=== PATIENT | female | born 1955 | race Caucasian/White ===

== ENCOUNTER 2018-03-21 08:21 | Day surgery (SDC) | payer OTHER, MEDICARE ==
[~2018-03-21 08:21] MED LIST: CEFAZOLIN 2 GM/50 ML (PMX) 50 ML IVPB; SOD CHLORIDE 0.9% 1,000 ML IV
[2018-03-21] MEDS ORDERED: DEXAMETHASONE 4 MG/ML 1 ML INJ (10:56)
[2018-03-21] MEDS ORDERED: MIDAZOLAM 1 MG/ML 2 ML INJ (10:56)
[2018-03-21] MEDS ORDERED: FENTAnyl 50 MCG/ML VIAL (10:56)
[2018-03-21] MEDS ORDERED: LIDOCAINE 2% (SDV) 5 ML INJ ×2 (10:57→11:47)
[2018-03-21] MEDS ORDERED: PROPOFOL 20 ML ×2 (10:57→11:47)
[2018-03-21] MEDS ORDERED: ISOSULFAN BLUE 1% 5 ML INJ SC (11:05)
[2018-03-21] MEDS ORDERED: MEPERIDINE 25 MG INJ IV (11:30)
[2018-03-21] MEDS ORDERED: PROCHLORPERAZINE 10 MG INJ IV (11:30)
[2018-03-21] MEDS ORDERED: HYDROmorphONE 1 MG/5 ML IV SYRINGE IV (11:30)
[2018-03-21] MEDS ORDERED: FENTAnyl 50 MCG/ML VIAL IV (11:30)
[2018-03-21] MEDS ORDERED: DIPHENHYDRAMINE 50 MG INJ IV (11:30)
[2018-03-21] MEDS ORDERED: OXYCODONE/ACETAMINOPHEN (5/325) TAB PO (11:30)
[2018-03-21] MEDS ORDERED: METOCLOPRAMIDE 10 MG INJ (11:48)
[2018-03-21] MEDS ORDERED: ONDANSETRON 4 MG INJ (11:48)
[2018-03-21] MEDS ORDERED: CEFAZOLIN 1 GM INJ (11:48)
[2018-03-21] MEDS ORDERED: EPHEDrine SULFATE 50 MG/5 ML SYG (12:02)
[2018-03-21] MEDS ORDERED: ACETAMINOPHEN 1000MG/100ML IV 100 ML (12:15)
[2018-03-21] MEDS ORDERED: oxyCODONE 5 MG TAB PO (13:00)
[2018-03-21] MEDS ORDERED: HYDROCODONE/APAP (7.5/325) TAB PO (13:00)
[2018-03-21] MEDS: HYDROmorphONE 1 MG/5 ML IV SYRINGE IV ×2 (13:07→13:19)
[2018-03-21] MEDS: ONDANSETRON 4 MG INJ IV (13:10)
== END 2018-03-21 15:07 | disposition home or self-care (01) ==
LOC: SDS 08:21
DX: C50.912 Malignant neoplasm of unspecified site of left female breast (principal); C77.3 Secondary and unspecified malignant neoplasm of axilla and upper limb lymph nodes; E11.9 Type 2 diabetes mellitus without complications; Z79.84 Long term (current) use of oral hypoglycemic drugs; I10 Essential (primary) hypertension
CPT/HCPCS: 38525; 71045; 82962; 88307; 88341; 88342; 93005